=== PATIENT | male | born 1960 | race Caucasian/White ===

== ENCOUNTER 2017-08-17 11:15 | Outpatient (RCR) | payer OTHER | END 2017-08-30 | disposition home or self-care (01) | LOC: PTY 11:15 | PROVIDERS: ATTEND Neurological Surgery | DX: D32.0 Benign neoplasm of cerebral meninges (principal) ==

== ENCOUNTER 2017-09-28 11:15 | Outpatient (RCR) | payer OTHER | END 2017-09-30 | disposition home or self-care (01) | LOC: PTY 11:15 | PROVIDERS: ATTEND Neurological Surgery | DX: D32.0 Benign neoplasm of cerebral meninges (principal); R26.89 Other abnormalities of gait and mobility ==

== ENCOUNTER 2017-10-05 10:10 | Outpatient (RCR) | payer OTHER | END 2017-10-31 | disposition home or self-care (01) | LOC: PTY 10:10 | PROVIDERS: ATTEND Neurological Surgery | DX: D32.0 Benign neoplasm of cerebral meninges (principal); R26.89 Other abnormalities of gait and mobility ==